=== PATIENT | male | born 1980 | race Caucasian/White ===

== ENCOUNTER → 2016-04-05 | Outpatient (CLI) | payer OTHER ==
[~2016-04-05] MED LIST: CEPH500C PO; OXYC-57 PO
== END | disposition home or self-care (01) ==
LOC: C.LAB 00:30
DX: Z02.83 Encounter for blood-alcohol and blood-drug test (principal)

== ENCOUNTER 2016-11-21 00:28 | Emergency (ER) | payer OTHER ==
[~2016-11-21] VITALS: Ht 185.4 cm; Wt 88.8 kg
[2016-11-21 00:31] VITALS: Ht 185.4 cm; Wt 88.8 kg
[2016-11-21] MEDS ORDERED: CEPHALEXIN MONOHYDRATE 250 MG CAP PO STA (00:42)
[2016-11-21] MEDS ORDERED: LIDOCAINE/EPINEPHRINE 1% 20 ML VIAL INFIL STA (00:42)
[2016-11-21] MEDS ORDERED: CEPHALEXIN 500MG HOME PACK 1 EA BTL PO ONE (00:45)
--- NOTE | 2016-11-21 01:07 | EMERGENCY ROOM VISIT NOTE ---
History Report prepared by Dameon: Klaus Garnica Under the Supervision of: Dr. Wesley Young M.D. First contact with patient: 00:36 Chief Complaint: ARM PAIN Stated Complaint: ABCESS ON ARM History of Present Illness The patient is a 36 year old male who presents to the Emergency Room with complaints of an abscess on his left arm that started 5 days ago. The patient admits to using IV drugs in that arm, which he believes caused this abscess. He has never had this happen before. He went to Urgent Care yesterday and was given Bactrim. They told him to go to the ER if it gets any worse. This weekend , he had a fever and chills, but he does not have them now. His pain worsens with bending his elbow. He denies any pain in his joints. His Tetanus is up to date. Source of History: patient Onset: 5 days ago Position: arm (left) Symptom Intensity: moderate Quality: other (Abscess) Timing: worsening Modifying Factors (Worsening): movement Associated Symptoms: No fevers, No chills Note: He denies any pain anywhere else. Review of Systems See HPI for pertinent positives & negatives. A total of 10 systems reviewed and were otherwise negative. Past Medical & Surgical No prior medical problems. Family History Cancer Hypertension Lung disease Social History Smoking Status: Current Every Day Smoker Alcohol Use: occasionally Marital Status: single Housing Status: lives with family Occupation Status: employed Current/Historical Medications Scheduled Cephalexin Monohydrate (Keflex), 1 CAP PO QID Allergies Coded Allergies: No Known Allergies (Unverified , 11/21/16) Physical Exam Vital Signs Date Time Temp Pulse Resp B/P (MAP) Pulse Ox O2 Delivery O2 Flow Rate FiO2 11/21/16 01:21 37.1 95 20 147/95 99 11/21/16 00:31 37.1 95 20 147/95 99 Room Air Physical Exam GENERAL: Patient is a healthy-appearing well-nourished male HEAD: Normocephalic atraumatic EYES: Ocular movements intact pupils equal and react to light OROPHARYNX mucous membranes are moist no exudates present no erythema or edema present NECK: Supple no nuchal rigidity CHEST: Good equal expansion LUNGS: Clear and equal to auscultation CARDIAC: Normal S1 and S2 ABDOMEN: Soft nontender no guarding BACK: No CVA tenderness EXTREMITIES: [] NEURO: Patient is following commands and answering questions appropriately. Alert and oriented x3 Cranial Nerves 2-12 grossly intact Medical Decision & Procedures Medications Administered Medications (Trade) Dose Ordered Sig/Mady Route Start Time Stop Time Status Last Admin Dose Admin Lidocaine/ Epinephrine (Xylocaine/Epine 1% Inj) 20 ml ONE STAT INFIL 11/21/16 00:42 11/21/16 00:43 DC 11/21/16 00:42 20 ML Cephalexin Monohydrate (Keflex 500MG Home Pack) 1 homepack NOW ONCE PO 11/21/16 00:45 11/21/16 00:46 DC 11/21/16 01:15 1 HOMEPACK Cephalexin Monohydrate (Keflex Cap) 500 mg NOW STAT PO 11/21/16 00:42 11/21/16 00:43 DC 11/21/16 01:14 500 MG Procedure Incision & Drainage Indication: Abscess. Location: Distal left humerus, not in the antecubital fossa, does not involve the joint. Verbal consent was obtained after the risks and benefits were explained, including but not limited to bleeding, scarring, infection, pain, and bone/joint /nerve damage. At this time, the risks of the procedure are less than the risks of NOT performing the procedure. A time out was taken and the correct patient and site identified. The skin was prepped with betadine and a sterile field set. The wound was anesthetized with 5 ml of 1% lidocaine without epinephrine. The abscess cavity was entered with a number 11 blade and purulent material expressed. Copious irrigation was performed using normal saline. The wound was explored for foreign bodies and none found. Debridement was not performed. Packing placed and a sterile dressing applied. Detailed wound care instructions and signs and symptoms of worsening infection reviewed with the patient. No complications and the patient tolerated the procedure well. ED Course 0036: Past medical records reviewed. The patient was evaluated in room B6. A complete history and physical examination was performed. 0042: Ordered Keflex Cap 500 mg PO, Lidocaine/Epinephrine 20 ml INFIL 0045: I performed an incision and drainage procedure at this time. Please see the procedure note for more information. Ordered Cephalexin Monohydrate 1 homepack PO. 0115: Upon reexamination the patient is resting. I discussed results and treatment plan with the patient. He verbalizes agreement and understanding. The patient is ready for discharge. Medical Decision Differential diagnoses include abscess. This is a 36-year-old male who presents emergency department complaining of arm abscess. The patient has no evidence of joint involvement at the elbow. He has no lymphadenitis. The abscess was opened and drained as above. The patient is a 30 on Bactrim and I will place him on Keflex pending culture results. Patient's tetanus is up-to-date. Patient was in agreement with the treatment plan. Medication Reconcilliation Current Medication List: was personally reviewed by me Blood Pressure Screening Patient's blood pressure: Elevated blood pressure Blood pressure disposition: Elevated BP felt to be situational Impression Primary Impression: Abscess of left arm Scribe Attestation The scribe's documentation has been prepared under my direction and personally reviewed by me in its entirety. I confirm that the note above accurately reflects all work, treatment, procedures, and medical decision making performed by me. Departure Information Dispostion Home / Self-Care Prescriptions Cephalexin Monohydrate (Keflex) 500 Mg Cap 1 CAP PO QID for 10 Days, #40 CAP Prov: Wesley Young MD 11/21/16 Referrals Lee Meredith M.D. (PCP) Forms HOME CARE DOCUMENTATION FORM, IMPORTANT VISIT INFORMATION, School Instructions, Work Instructions Patient Instructions ED Abscess IandD, My [facility] Additional Instructions Continue taking Bactrim Take 600 mg Ibuprofen every 6 hours Take 1000 mg Tylenol every 6 hours Culture results are usually available in approx 48 hours You have been examined and treated today on an emergency basis only. This is not a substitute for, or an effort to provide, complete comprehensive medical care. It is impossible to recognize and treat all injuries or illnesses in a single emergency department visit. It is therefore important that you follow up closely with Dr Meredith. Call as soon as possible for an appointment. Thank you for your time and consideration. I look forward to speaking with you again soon. Please don't hesitate to call us if you have any questions.
[2016-11-21] MEDS ORDERED: CEPH500C PO (01:08)
[2016-11-21 01:21] VITALS: BP 147/95; PULSE 95; TEMP 37.1; O2SAT 99
[2016-11-21] MEDS ORDERED: OXYC-57 PO (03:48)
== END 2016-11-21 01:22 | disposition home or self-care (01) ==
LOC: C.EDB 00:29
DX: L02.414 Cutaneous abscess of left upper limb (principal); M79.602 Pain in left arm; F17.210 Nicotine dependence, cigarettes, uncomplicated

== ENCOUNTER 2016-11-21 03:04 | Emergency (ER) | payer OTHER ==
[~2016-11-21] VITALS: Ht 185.4 cm; Wt 87.4 kg
[~2016-11-21 03:04] MED LIST changes: -OXYC-57 PO
[2016-11-21 03:08] VITALS: TEMP 36.7; Ht 185.4 cm; Wt 87.4 kg
[2016-11-21] MEDS ORDERED: PERCOCET HOME PACK PO ONE (03:30)
[2016-11-21] MEDS ORDERED: OXYC-57 PO (03:48)
--- NOTE | 2016-11-21 03:52 | EMERGENCY ROOM VISIT NOTE ---
History First contact with patient: 03:12 Chief Complaint: ARM PAIN Stated Complaint: PAIN IN ARM WORSE History of Present Illness The patient is a 36 year old male who presents to the Emergency Room with complaints of pain in his left arm. The patient states he was seen here a few hours ago due to an abscess in his left arm. He had incision and drainage and states that at that time, he did not feel that he would need any pain medication. However, when the patient returned home his pain increased and he has been unable to sleep due to the pain. Rates his discomfort a /10. Denies any fevers. Review of Systems A 6 point review of systems was reviewed with the patient with pertinent positives and negatives as per history of present illness. All else were negative. Family History Cancer Hypertension Lung disease Social History Smoking Status: Current Every Day Smoker Alcohol Use: occasionally Marital Status: single Housing Status: lives with family Occupation Status: employed Current/Historical Medications Scheduled Cephalexin Monohydrate (Keflex), 1 CAP PO QID Scheduled PRN Oxycodone/Acetaminophen 5MG/325MG (Percocet 5MG/325MG), 1-2 TABS PO Q4H PRN for Pain Physical Exam Vital Signs Date Time Temp Pulse Resp B/P (MAP) Pulse Ox O2 Delivery O2 Flow Rate FiO2 11/21/16 03:59 95 20 135/99 97 11/21/16 03:08 36.7 101 18 141/87 99 Room Air Physical Exam VITALS: Vitals are noted on the nurse's note and reviewed by myself. Vital signs stable. GENERAL: This is a 36-year-old male, in no acute distress, nondiaphoretic, well- developed well-nourished. SKIN: There is an area of induration to the distal left upper arm. There is a central incision which is draining a small amount of blood and serous fluid. HEART: Regular rate and rhythm without murmurs gallops or rubs. LUNGS: Clear to auscultation bilaterally without wheezes, rales or rhonchi. MUSCULOSKELETAL: Full range of motion of the left upper extremity. NEURO: Patient was alert and oriented to person place and time. Medical Decision & Procedures Medications Administered Medications (Trade) Dose Ordered Sig/Mady Route Start Time Stop Time Status Last Admin Dose Admin Oxycodone/ Acetaminophen (Percocet 5/ 325MG Home Pack) 1 homepack UD ONCE PO 11/21/16 03:30 11/21/16 03:31 DC 11/21/16 03:56 [facility] Decision The patient was evaluated as above. Previous records were reviewed. The patient was seen here a few hours ago for a left arm abscess. He initially declined any pain medication, however his pain has since increased and he is requesting something for pain at this time. He was given a home pack and prescription of Percocet. He was encouraged to continue to follow the directions given to him on his previous visit. He verbalized understanding of my assessment and treatment plan was discharged home in good condition. [place] Drug Monitoring Program Search Results: patient reviewed within database, no issues identified Medication Reconcilliation Current Medication List: was personally reviewed by me Blood Pressure Screening Patient's blood pressure: Elevated blood pressure Blood pressure disposition: Elevated BP felt to be situational Impression Primary Impression: Arm pain, left Departure Information Dispostion Home / Self-Care Condition GOOD Prescriptions Oxycodone/Acetaminophen 5MG/325MG (PERCOCET 5MG/325MG) Tab 1-2 TABS PO Q4H Y for Pain, #12 TAB For Initial Treatment Prov: Greta Rasmussen ., LINDSAY 11/21/16 Referrals No Doctor, Assigned (PCP) Patient Instructions My [facility] Additional Instructions You have been prescribed Percocet to be used for pain control. Take 1-2 tablets every 4-6 hours as needed for pain. This is a narcotic medication. You cannot drive or consume alcohol while on this medicine. This medicine should only be used for pain that cannot be controlled with [id number] pain medicines. Continue to follow the directions given to you at your previous visit.
[2016-11-21 03:59] VITALS: BP 135/99; PULSE 95; O2SAT 97
== END 2016-11-21 04:00 | disposition home or self-care (01) ==
LOC: C.EDB 03:04 → C.EDA 04:00
DX: M79.602 Pain in left arm (principal); Z98.890 Other specified postprocedural states; F17.210 Nicotine dependence, cigarettes, uncomplicated

== ENCOUNTER 2017-01-05 09:00 | Emergency (ER) | payer OTHER ==
[~2017-01-05] VITALS: Ht 185.4 cm; Wt 89.3 kg
[~2017-01-05 09:00] MED LIST changes: -CEPH500C PO; +OXYC-57 PO
[2017-01-05 09:04] VITALS: Ht 185.4 cm; Wt 89.3 kg
[2017-01-05] MEDS ORDERED: PRED20TA PO (10:40)
[2017-01-05] MEDS ORDERED: AMOX875T PO (10:40)
--- NOTE | 2017-01-05 10:44 | EMERGENCY ROOM VISIT NOTE ---
History Report prepared by Scribe: Dontae Bedolla Under the Supervision of: Dr. Jazzy De Dios M.D. First contact with patient: 09:15 Chief Complaint: ILLNESS Stated Complaint: POSSIBLE ALLERGIC REACTION,THROAT SWELLING History of Present Illness The patient is a 36 year old male who presents to the Emergency Room with complaints of constant throat swelling beginning shortly prior to arrival. He has been having difficulty swallowing. He states that he felt completely normal last night. The patient notes that he snores at night. He denies any known fevers or cough. Source of History: patient Onset: Shortly prior to arrival Position: throat Quality: other (swelling) Timing: constant Associated Symptoms: No fevers (known), No cough Review of Systems See HPI for pertinent positives & negatives. A total of 10 systems reviewed and were otherwise negative. Past Medical & Surgical Medical Problems: (1) Alcohol abuse (2) Chest pain (3) Dyspnea (4) Hemorrhoid prolapse (5) No Known Active Medical Problems Family History Cancer Hypertension Lung disease Social History Smoking Status: Current Every Day Smoker Alcohol Use: occasionally Marital Status: single Housing Status: lives with family Occupation Status: employed Current/Historical Medications Scheduled Amoxicillin & Pot Clavulanate (Augmentin 875-125 mg), 875 MG PO BID Prednisone (Prednisone), 40 MG PO DAILY Allergies Coded Allergies: No Known Allergies (Unverified , 01/05/17) Physical Exam Vital Signs Date Time Temp Pulse Resp B/P (MAP) Pulse Ox O2 Delivery O2 Flow Rate FiO2 01/05/17 10:55 36.3 92 18 156/82 99 01/05/17 09:04 36.3 99 20 170/79 98 Room Air Physical Exam Vital signs reviewed. General: Well-appearing male, in no significant distress. HEENT: No scleral icterus, PERRLA, neck supple. Atraumatic. Significant swelling to the uvula with punctate hemorrhages. Cardiovascular: Regular rate and rhythm, no extra sounds. Pulmonary: Clear to auscultation bilaterally, normal work of breathing. Abdomen: Soft, nontender, nondistended, positive bowel sounds. Musculoskeletal: Atraumatic, no peripheral edema. Neurologic: Patient awake alert and oriented x 3 Skin: Warm, dry, no rash Medical Decision & Procedures Medications Administered Medications (Trade) Dose Ordered Sig/Mady Route Start Time Stop Time Status Last Admin Dose Admin Prednisone (PredniSONE TAB) 60 mg NOW STAT PO 01/05/17 09:50 01/05/17 09:53 DC 01/05/17 10:01 60 MG ED Course 09: Past medical records reviewed. The patient was evaluated in room A4. A complete history and physical examination was performed. 0950: Ordered Prednisone Tab 60 mg PO. 1040: Upon reevaluation, the patient appeared to have improvement of his symptoms. I discussed findings with him. He verbalized agreement of the treatment plan. The patient was discharged home. Medical Decision Differential diagnosis: Etiologies such as viral syndrome, tonsillitis, streptococcal pharyngitis, mononucleosis, peritonsillar abscess, retropharyngeal abscess, otitis, pneumonia , influenza, as well as others were entertained. This patient was evaluated and appeared to be in no significant distress. Rapid strep swab was obtained and is negative. They will be sent for formal culture. I suspect most of this uvulitis is related to trauma from snoring. He was given 60 mg of oral prednisone and will be given 40 mg a day for 4 more days. He will also be placed on Augmentin for the possibility of infectious etiology. Patient will follow-up with his PCP for sleep study and possibly ENT referral. Patient is aware of the plan and agrees. He was advised to stop smoking. He will return to the ER for worsening of symptoms or any medical concerns. Medication Reconcilliation Current Medication List: was personally reviewed by me Blood Pressure Screening Patient's blood pressure: Elevated blood pressure Blood pressure disposition: Referred to PCP Impression Primary Impression: Uvulitis Scribe Attestation The scribe's documentation has been prepared under my direction and personally reviewed by me in its entirety. I confirm that the note above accurately reflects all work, treatment, procedures, and medical decision making performed by me. Departure Information Dispostion Home / Self-Care Prescriptions Amoxicillin & Pot Clavulanate (Augmentin 875-125 mg) 1 Tab Tab 875 MG PO BID for 7 Days, #14 TAB Prov: Jazzy De Dios M.D. 01/05/17 Prednisone (Prednisone) 20 Mg Tab 40 MG PO DAILY, #8 TAB Prov: Jazzy De Dios M.D. 01/05/17 Referrals No Doctor, Assigned (PCP) Forms HOME CARE DOCUMENTATION FORM, IMPORTANT VISIT INFORMATION, WORK / SCHOOL INSTRUCTIONS Patient Instructions My [facility] Additional Instructions Diagnosis: Uvelitis Prednisone 40 mg daily for 4 more days. Augmentin 875 mg twice daily for 7 days. Follow-up with your primary care physician regarding a sleep study. Please stop smoking. Return to the emergency department for worsening of symptoms or any medical concerns.
[2017-01-05 10:55] VITALS: BP 156/82; PULSE 92; TEMP 36.3; O2SAT 99
== END 2017-01-05 10:50 | disposition home or self-care (01) ==
LOC: C.EDB 09:01 → C.EDA 10:50
DX: K12.2 Cellulitis and abscess of mouth (principal); F17.200 Nicotine dependence, unspecified, uncomplicated; Z80.9 Family history of malignant neoplasm, unspecified; Z82.49 Family history of ischemic heart disease and other diseases of the circulatory system